=== PATIENT | female | born 1940 | race Caucasian/White ===

== ENCOUNTER 2017-08-11 21:41 | Emergency (ER) | payer OTHER ==
[~2017-08-11] VITALS: Ht 162.6 cm; Wt 73.6 kg
[~2017-08-11 21:41] MED LIST: ATENOLOL100 MG PO; CALCIUM 500 MG1 EACH PO; HYDROCHLOROTHIA25 MG PO; HYTRIN10 MG PO; LOSARTAN POTAS100 MG PO; OMEPRAZOLE40 M1 PO; RANITIDINE HCL150 MG PO; ST. JOSEPH ASPI81 MG PO; XARELTO1 EACH PO
[2017-08-11 22:21] LABS: HEMATOCRIT 40.6 % (36.0-46.0); HEMOGLOBIN 14.2 G/DL (11.9-15.5); MCV 88.6 FL (83-99); PLATELET COUNT 212 K/uL (156-360); RBC DIS.WIDTH-SD 42.2 % (39-53); RED BLOOD COUNT 4.58 M/uL (3.80-5.20)
[2017-08-11 22:30] LABS: CHLORIDE 97 mEq/L (99-109); POTASSIUM 3.5 mEq/L (3.7-5.4); SODIUM 135 mEq/L (136-147)
[2017-08-11 22:31] LABS: GLUCOSE 121 mg/dL (70-99)
[2017-08-11 22:35] LABS: CREATININE 0.9 mg/dL (0.6-1.3); GFR ESTIMATE (CALCULATED) > 59 mL/min/
[2017-08-11 22:36] LABS: UREA NITROGEN (BUN) 14 mg/dL (9-23)
[2017-08-11 23:13] VITALS: BP 179/76
== END 2017-08-11 23:15 | disposition home or self-care (01) ==
LOC: EME 21:41
PROVIDERS: Emergency Medicine
DX: R51 Headache (principal); I10 Essential (primary) hypertension; Z86.718 Personal history of other venous thrombosis and embolism; Z79.82 Long term (current) use of aspirin; Z87.891 Personal history of nicotine dependence
CPT/HCPCS: 70450; 80048; 85027; 99281; 99285; J1885; J7030